=== PATIENT | male | born 1995 | race African-American/Black ===

== ENCOUNTER 2018-09-23 11:26 | Emergency (ER) | payer BC ==
[~2018-09-23] VITALS: Ht 180.3 cm; Wt 95.3 kg
[~2018-09-23 11:26] MED LIST: IBUPROFEN 600600 M1 PO
[2018-09-23] MEDS ORDERED: IBUPROFEN 600600 M1 PO (13:11)
[2018-09-23] MEDS ORDERED: KEFLEX500 M1 PO (13:11)
[2018-09-23 14:13] VITALS: BP 141/70
== END 2018-09-23 14:00 | disposition home or self-care (01) ==
LOC: ER 11:26
DX: S91.342A Puncture wound with foreign body, left foot, initial encounter (principal); J45.909 Unspecified asthma, uncomplicated; Z88.0 Allergy status to penicillin; W22.09XA Striking against other stationary object, initial encounter; Y93.89 Activity, other specified; Y92.89 Other specified places as the place of occurrence of the external cause; Y99.8 Other external cause status